=== PATIENT | female | born 1995 ===

== ENCOUNTER 2017-05-24 16:20 | Emergency (ER) | payer SELFPAY ==
[2017-05-24 16:54] VITALS: RESP 16; O2SAT 98
--- NOTE | 2017-05-24 19:12 | C.PDOC ---
History Of Present Illness 22yo female, presents to ED for evaluation of headache, throat pain, 1 x episode of epistaxis, fever, sore throat for the past 3 days. Patient also reports generalized fatigue; she denies any cough, shortness of breath, chest pain, vomiting, diarrhea, rash. She denies any recent travels. No other complaints. Time Seen by Provider: 05/24/17 16:58 Chief Complaint (Nursing): Cough, Cold, Congestion History Per: Patient History/Exam Limitations: no limitations Onset/Duration Of Symptoms: Days (3) Current Symptoms Are (Timing): Still Present Location Of Pain: Throat, Diffuse Myalgias, Headache Sick Contacts (Context): None Associated Symptoms: Fever, Sore Throat, Other (epistaxis) Additional History Per: Patient Past Medical History Reviewed: Historical Data, Nursing Documentation, Vital Signs Vital Signs: Last Vital Signs Temp 97.9 F 05/24/17 19:25 Pulse 72 05/24/17 19:25 Resp 16 05/24/17 19:25 BP 109/72 05/24/17 19:25 Pulse Ox 98 05/24/17 19:25 - Medical History PMH: No Chronic Diseases Surgical History: No Surg Hx Family History: States: No Known Family Hx - Social History Hx Alcohol Use: No Hx Substance Use: No - Immunization History Hx Influenza Vaccination: No Review Of Systems Constitutional: Positive for: Fever, Malaise, Other (fatigue) ENT: Positive for: Nose Discharge (1 x episode of epistaxis), Throat Pain Cardiovascular: Negative for: Chest Pain, Palpitations, Edema Respiratory: Negative for: Cough, Shortness of Breath, Wheezing Gastrointestinal: Negative for: Nausea, Vomiting, Abdominal Pain Musculoskeletal: Negative for: Neck Pain, Back Pain Skin: Negative for: Rash, Lesions Physical Exam - Physical Exam Appears: Non-toxic, No Acute Distress Skin: Normal Color, Warm, Dry, No Rash Head: Atraumatic, Normacephalic Eye(s): bilateral: Normal Inspection Ear(s): Bilateral: Normal Nose: Normal Oral Mucosa: Moist Throat: Normal, No Erythema, No Exudate Neck: Normal, Normal ROM, Supple, Other (FROM with no signs of meningismus) Lymphatic: Adenopathy (nontender cervical lymphadenopathy bilaterally) Cardiovascular: Rhythm Regular, No Murmur Respiratory: Normal Breath Sounds, No Decreased Breath Sounds, No Rales, No Rhonchi, No Wheezing Extremity: Normal ROM, No Tenderness, No Swelling ED Course And Treatment O2 Sat by Pulse Oximetry: 98 (RA) Pulse Ox Interpretation: Normal Progress Note: Patient given motrin po. Rapid flu and rapid strep ordered. Rapid flu & rapid strep negative. Results d/w the patient. On re-evaluation, patient reports feeling much improved. Patient is breathing easy and unlabored. Patient stable for discharge home. Disposition Counseled Patient/Family Regarding: Diagnosis, Need For Followup, Rx Given - Disposition Referrals: [facility] [Outside] Disposition: HOME/ ROUTINE Disposition Time: 19:10 Condition: STABLE Additional Instructions: Follow up with the clinic in 2 days without fail for further evaluation. Take medication as prescribed. Return to the ER at any time for any new or worsening symptoms. 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 - Scribe Statement The provider has reviewed the documentation as recorded by the Mayda Pisano provider Attestation: All medical record entries made by the Mayda were at my direction and personally dictated by me. I have reviewed the chart and agree that the record accurately reflects my personal performance of the history, physical exam, medical decision making, and the department course for this patient. I have also personally directed, reviewed, and agree with the discharge instructions and disposition.
[2017-05-24 19:28] VITALS: BP 109/72; PULSE 72; TEMP 97.9
== END 2017-05-24 19:28 | disposition home or self-care (01) ==
LOC: EDBD 16:20 → C.ER 16:20
DX: J32.9 Chronic sinusitis, unspecified (principal)

== ENCOUNTER 2018-05-28 21:52 | Emergency (ER) | payer SELFPAY ==
[2018-05-28 22:50] LABS: BASO % 0.5 % (0.0-2.0); EOS # 0.1 K/uL (0.0-0.7); EOS % 1.6 % (0.0-4.0); HEMOGLOBIN 13.5 g/dL (11.0-16.0); LYMPH # 1.9 K/uL (1.0-4.3); LYMPH % 27.8 % (20.0-40.0); MEAN CELL VOLUME 81.5 fL (81.0-99.0); MEAN CORPUSCULAR HEMOGLOBIN 27.1 pg (27.0-31.0); MEAN CORPUSCULAR HGB CONC 33.3 g/dL (33.0-37.0); MEAN PLATELET VOLUME 7.4 fL (7.2-11.7); MONO # 0.3 K/uL (0.0-0.8); MONO % 4.5 % (0.0-10.0); NEUT # 4.4 K/uL (1.8-7.0); NEUT % 65.6 % (50.0-75.0); NRBC % 0.1 % (0.0-2.0); RBC 4.99 Mil/uL (3.80-5.20); RED CELL DISTRIBUTION WIDTH 14.7 % (11.5-14.5); WHITE BLOOD COUNT 6.7 K/uL (4.8-10.8)
[2018-05-28 22:52] LABS: HCG,QUALITATIVE URINE NEGATIVE (NEGATIVE)
--- NOTE | 2018-05-28 22:54 | C.PDOC ---
History Of Present Illness The patient is a 23 year old female who arrived to the [facility] from [place], has previous history of Bronchospasm, and used nebulizer until age [age]. Patient presents to the ED today with complaints of chest pain and shortness of breath for one week. Patient states the pain is under her left breast, and describes it as a sharp and stabbing sensation. Patient reports trouble breathing, stating it feels like she ran a marathon. Patient also has been experiencing hematomas diffusely around her body. She recently had a hematoma on her abdominal region and now has hematomas to her bilateral knees and on her right foot. Patient r eports slight lightheadedness, likely caused by her difficulty with breathing. She reports slight nausea, but otherwise denies fever, chills, headache, vomiting, recent travel. Time Seen by Provider: 05/28/18 22:05 Chief Complaint (Nursing): Shortness Of Breath History Per: Patient History/Exam Limitations: no limitations Onset/Duration Of Symptoms: Days Current Symptoms Are (Timing): Still Present Quality: Sharp, "Pain", Other (stabbing ) Associated Symptoms: Chest Pain. denies: Fever, Chills Additional History Per: Patient Past Medical History Reviewed: Historical Data, Nursing Documentation, Vital Signs Vital Signs: Last Vital Signs Temp 98.7 F 05/28/18 22:02 Pulse 87 05/28/18 22:02 Resp 20 05/28/18 22:02 BP 126/75 05/28/18 22:02 Pulse Ox 100 05/28/18 22:02 - Medical History PMH: No Chronic Diseases Surgical History: No Surg Hx Family History: States: Unknown Family Hx - Social History Hx Alcohol Use: Yes Hx Substance Use: No - Immunization History Hx Influenza Vaccination: No Review Of Systems Constitutional: Negative for: Fever, Chills Cardiovascular: Positive for: Chest Pain Respiratory: Positive for: Shortness of Breath Gastrointestinal: Positive for: Nausea. Negative for: Vomiting Neurological: Positive for: Other (lightheadedness ). Negative for: Headache Physical Exam - Physical Exam Appears: Non-toxic, No Acute Distress Skin: Warm, Dry, Pale, No Rash, Ecchymosis (to bilateral knees and right foot ), No Other (ecchymosis noted to abdominal region ) Head: Atraumatic, Normacephalic Eye(s): bilateral: Normal Inspection Oral Mucosa: Moist Neck: Normal ROM, Supple Chest: Symmetrical, No Deformity, No Tenderness Cardiovascular: Rhythm Regular, No Murmur, No Other (tachycardia ) Respiratory: Normal Breath Sounds, No Rales, No Rhonchi, No Wheezing, Other (good air movement, oxygen saturation at 100%) Gastrointestinal/Abdominal: Soft, No Tenderness, No Guarding, No Rebound Extremity: Normal ROM, Capillary Refill (less than 2 seconds ) Neurological/Psych: Oriented x3, Normal Speech, Normal Cognition ED Course And Treatment - Laboratory Results Result Diagrams: 05/28/18 22:48 05/28/18 22:48 ECG: Interpreted By Me, Viewed By Me ECG Rhythm: Sinus Rhythm Rate From EC O2 Sat by Pulse Oximetry: 100 (on RA) Pulse Ox Interpretation: Normal Medical Decision Making Medical Decision Making: Impression: 23 year old female with chest pain and shortness of breath Plan: * bloodwork * urinalysis * CXR * EKG * Flu Swab * reassess and disposition Progress: Bloodwork (including d-dimer), urinalysis, CXR, EKG, Flu swab ordered and reviewed. No signs of infection. Normal coags. DDimer normal. CXR clear. Disposition Counseled Patient/Family Regarding: Studies Performed, Diagnosis, Need For Followup, Rx Given - Disposition Referrals: [facility] [Outside] Disposition: HOME/ ROUTINE Disposition Time: 23:54 Condition: STABLE Prescriptions: LORazepam [Ativan] 0.5 mg PO PRN PRN #12 tab PRN Reason: Anxiety Instructions: Hyperventilation Forms: Gen Discharge Inst Scottish, [facility] (Scottish), Work Excuse - POA Present On Arrival: None - Clinical Impression Clinical Impression: Hyperventilation - Scribe Statement The provider has reviewed the documentation as recorded by the Scribe (Dilma Parry) Provider Attestation: All medical record entries made by the Scribe were at my direction and person ally dictated by me. I have reviewed the chart and agree that the record accurately reflects my personal performance of the history, physical exam, medical decision making, and the department course for this patient. I have also personally directed, reviewed, and agree with the discharge instructions and disposition.
[2018-05-28 22:56] LABS: SQUAMOUS EPITHIAL 9 /hpf (0-5); URINE BACTERIA MOD (<OCC); URINE BILIRUBIN NEGATIVE (NEGATIVE); URINE BLOOD 3+ (NEGATIVE); URINE CLARITY Hazy (Clear); URINE COLOR Red (YELLOW); URINE GLUCOSE (UA) NORMAL (Normal); URINE LEUKOCYTE ESTERASE 1+ Leu/uL (Negative); URINE PROTEIN 2+ mg/dL (NEGATIVE); URINE UROBILINOGEN NORMAL mg/dL (0.2-1.0)
[2018-05-28 22:58] LABS: INR 1.2; PARTIAL THROMBOPLASTIN TIME 38 SECONDS (21-34); PROTHROMBIN TIME 12.7 SECONDS (9.7-12.2)
[2018-05-28 23:03] LABS: D DIMER < 200 ng/mlDDU (0-243)
[2018-05-28 23:04] LABS: ALB/GLOB RATIO 1.6 (1.0-2.1); ALBUMIN 5.2 g/dL (3.5-5.0); ALT/SGPT 24 U/L (9-52); AST/SGOT 20 U/L (14-36); BLOOD UREA NITROGEN 8 mg/dL (7-17); CALCIUM 9.9 mg/dl (8.6-10.4); GFR NON-AFRICAN AMERICAN > 60
[2018-05-28 23:07] LABS: BARBITURATES, UR NEGATIVE (NEGATIVE); BENZODIAZEPINES, UR NEGATIVE (NEGATIVE); OPIATES, UR NEGATIVE (NEGATIVE); PHENCYCLIDINE, UR NEGATIVE (NEGATIVE)
[2018-05-28 23:08] LABS: ABG ALLEN TEST POS; ARTERIAL BLOOD GAS HCO3 27.1 mmol/L (21-28); ARTERIAL BLOOD GAS HEMOGLOBIN 11.9 g/dL (11.7-17.4); ARTERIAL BLOOD GAS O2 SAT 99.4 % (95-98); ARTERIAL BLOOD GAS PCO2 31 mm/Hg (35-45); ARTERIAL BLOOD GAS PH 7.52 (7.35-7.45); ARTERIAL BLOOD GAS PO2 110 mm/Hg (80-100); ARTERIAL BLOOD GAS TCO2 26.3 mmol/L (22-28)
[2018-05-28 23:13] LABS: B-TYPE NATRIURETIC PEPTIDE 24.6 pg/mL (0-450)
[2018-05-28 23:38] VITALS: BP 127/80; PULSE 80; RESP 16
[2018-05-28 23:48] VITALS: O2SAT 100
[2018-05-29 00:03] VITALS: TEMP 98.6
--- NOTE | 2018-05-29 08:21 | RAD ---
Date of service: 05/28/2018 HISTORY: SOB COMPARISON: No prior. TECHNIQUE: Chest PA and lateral FINDINGS: LUNGS: No active pulmonary disease. PLEURA: No significant pleural effusion identified. No pneumothorax apparent. CARDIOVASCULAR: No aortic atherosclerotic calcification present. Normal cardiac size. No pulmonary vascular congestion. OSSEOUS STRUCTURES: No significant abnormalities. VISUALIZED UPPER ABDOMEN: Normal. OTHER FINDINGS: None. IMPRESSION: No acute cardiopulmonary disease appreciated.
--- NOTE | 2018-05-30 14:48 | CARD ---
APPROVED REPORT Date of service: 05/28/2018 EKG Measurement Heart [id number] <Conclusion> Normal sinus rhythm with sinus arrhythmia Normal ECG
== END 2018-05-29 00:05 | disposition home or self-care (01) ==
LOC: C.ER 21:52
DX: R06.4 Hyperventilation (principal)
CPT/HCPCS: 71046; 80053; 81001; 82803; 83880; 84484; 84703; 85025; 85378; 85610; 85730; 87804; 93005; 99285; G0480